=== PATIENT | female | born 1990 | race Native Hawaiian/Other Pacific Islander ===

== ENCOUNTER → 2020-10-07 | Outpatient (REF) | LOC: M LAB 10:07 | PROVIDERS: ATTEND Nurse Practitioner Family | DX: Z00.00 Encounter for general adult medical examination without abnormal findings (principal) ==

== ENCOUNTER → 2020-10-12 | Outpatient (REF) | LOC: M EMPSSV 09:21 | PROVIDERS: ATTEND Family Medicine | DX: Z11.52 Encounter for screening for COVID-19 (principal) ==

== ENCOUNTER → 2020-10-12 | Outpatient (CLI) | payer OTHER ==
[2020-10-12 09:16] LABS: EOS # 0.1 10^3/uL (0.0-0.5); EOS % 2.9 % (0.0-3.0); HEMOGLOBIN 13.6 g/dl (12.0-15.5); LYMPH # 1.6 10^3/uL (1.5-5.0); LYMPH % 41.3 % (24.0-44.0); MEAN CORPUSCULAR HEMOGLOBIN 32.1 pg (27.0-33.0); MEAN CORPUSCULAR VOLUME 94.3 fl (80.0-96.0); MONO # 0.3 10^3/uL (0.0-0.8); MONO % 8.1 % (2.0-8.0); NEUTROPHILS # 1.8 10^3/uL (1.5-8.5); NEUTROPHILS % 46.4 % (36.0-66.0); PLATELET COUNT, AUTOMATED 197 10^3/uL (150-450); RED BLOOD COUNT 4.24 10^6/uL (4.00-5.40); WHITE BLOOD COUNT 3.9 10^3/uL (4.0-10.0)
[2020-10-12 09:58] LABS: ALT/SGPT 54 U/L (12-78); BILIRUBIN,TOTAL 0.3 MG/DL (0.2-1.0); BLOOD UREA NITROGEN 25 MG/DL (7-18); CALCIUM LEVEL 8.8 MG/DL (8.5-10.1); CARBON DIOXIDE LEVEL 29 MEQ/L (21-32); CHLORIDE LEVEL 109 MEQ/L (98-107); CREATININE FOR GFR 0.76 MG/DL (0.55-1.30); FREE T4 0.81 NG/DL (0.76-1.46); GLOMERULAR FILTRATION RATE > 60.0 (>60); GLUCOSE, FASTING 84 MG/DL (70-100); MAGNESIUM LEVEL 2.1 MG/DL (1.8-2.4); POTASSIUM SERUM 4.2 MEQ/L (3.5-5.1); SODIUM LEVEL 142 MEQ/L (136-145); THYROID STIMULATING HORMONE 0.948 uIU/ML (0.358-3.740); TOTAL PROTEIN 6.5 GM/DL (6.4-8.2)
[2020-10-12 10:24] LABS: TOTAL 25(OH) VITAMIN D 49.5 NG/ML (30.0-100.0)
== END ==
LOC: M LAB 08:52
PROVIDERS: ATTEND Physician Assistant
DX: Z13.29 Encounter for screening for other suspected endocrine disorder (principal)

== ENCOUNTER → 2020-11-19 | Outpatient (CLI) | payer OTHER ==
--- NOTE | 2020-11-19 14:54 | REP ---
INDICATION: FOOT PAIN EVAL SOFT TISSUE MASSES. COMPARISON: None TECHNIQUE: 3T multiplanar MRI imaging of the right was obtained using various sequences. FINDINGS: Magnetic susceptibility artifact is seen in the distal aspect of the 1st metatarsal secondary to previous bunionectomy. The remainder of the cortical and marrow signal seen throughout the foot is within normal limits. All imaged flexor and extensor tendons are intact and of normal appearing low signal throughout. There is no evidence of a joint effusion. Within the soft tissues of the ball of the foot from the subdermal region to the plantar fascia there is an oval-shaped 2.2 by 1.2 by 1.9 cm sized mixed signal structure which is situated between the markers on the skin placed by the sand technologist. IMPRESSION: Small soft tissue mass lesion potentially representing induration due to inflammation/infection or an actual mass. A gadolinium-enhanced exam may shed further light on the abnormality. <Electronically signed by Denzel Kennedy > 11/19/20 [id number]
--- NOTE | 2020-11-19 15:04 | REP ---
INDICATION: FOOT PAIN EVAL SOFT TISSUE MASS. COMPARISON: None TECHNIQUE: 3T multiplanar MRI imaging of the left foot was obtained using various sequences. FINDINGS: Seen on the anterior surface of the midfoot and subjacent to the marker placed by the technologist there is a 2.2 x 1.1 by 1.5 cm sized mixed signal solid nodule. This abuts the extensor tendon to the 2nd digit but there is no definite evidence of tendinous involvement. There is no evidence of erosion of the cortex of the underlying osseous structures. There is no joint effusion. Cortical marrow signal seen throughout the imaged osseous structures is within normal limits with the exception of magnetic susceptibility artifact seen in the distal aspect of the 1st metatarsal secondary to some surgical procedure likely a bunionectomy. IMPRESSION: Small soft tissue nodular density as described above the etiology of which is uncertain. Consider a gadolinium-enhanced exam if clinically relevant. <Electronically signed by Denzel Kennedy > 11/19/20 [id number]
== END ==
LOC: M PLARAD 10:36
PROVIDERS: ATTEND Podiatrist Foot & Ankle Surgery
DX: D21.21 Benign neoplasm of connective and other soft tissue of right lower limb, including hip (principal); D21.22 Benign neoplasm of connective and other soft tissue of left lower limb, including hip

== ENCOUNTER → 2020-11-29 | Outpatient (CLI) | payer OTHER ==
[~2020-11-29] MED LIST: HYDR-3713 PO; ONDA-83 PO; VITMTA PO
== END ==
LOC: M LABSMTC 14:25
PROVIDERS: ATTEND Anesthesiology
DX: Z11.52 Encounter for screening for COVID-19 (principal)

== ENCOUNTER 2020-12-01 08:29 | Day surgery (SDC) | payer OTHER ==
[~2020-12-01] VITALS: Ht 165.1 cm; Wt 61.7 kg
[~2020-12-01 08:29] MED LIST changes: +CLINDAMYCIN 600 MG in IV 1 EA IV ONE; -HYDR-3713 PO; +LR 1,000 ML IV ONE; -ONDA-83 PO
[2020-12-01] MEDS ORDERED: dexameTHASONE 4 MG/ML 1ML VIAL (J1100 PER 1MG) As Ordered ONE (10:31)
[2020-12-01] MEDS ORDERED: LIDOCAINE 1% MDV 20ML VIAL As Ordered ONE (10:31)
[2020-12-01] MEDS ORDERED: BUPIVACAINE HCL 0.5% 10ML VIAL As Ordered ONE (10:31)
[2020-12-01] MEDS ORDERED: MIDAZOLAM INJ 2MG/2ML VIAL (J2250 PER 1MG) As Ordered ONE (10:52)
[2020-12-01] MEDS ORDERED: fentaNYL 100 MCG/2 ML INJECTION (J3010) As Ordered ONE (10:52)
[2020-12-01] MEDS ORDERED: LIDOCAINE 2% 100MG/5ML SDV (FOR ANES.) As Ordered ONE (10:52)
[2020-12-01] MEDS ORDERED: propofoL 200 MG/20 ML VIAL As Ordered ONE (10:52)
[2020-12-01] MEDS ORDERED: CLINDAMYCIN 600 MG/50 ML PREMIX BAG As Ordered ONE (11:18)
[2020-12-01] MEDS ORDERED: KETOROLAC 60MG 2ML VIAL As Ordered ONE (11:59)
[2020-12-01] MEDS ORDERED: ONDA-83 PO (12:26)
[2020-12-01] MEDS ORDERED: HYDR-3713 PO (12:26)
--- NOTE | 2020-12-01 13:08 | RO ---
OPERATIVE NOTE DATE OF OPERATION: 12/01/2020 PREOPERATIVE DIAGNOSIS: Left foot dorsal and posterior soft tissue mass. POSTOPERATIVE DIAGNOSIS: Left foot dorsal and posterior soft tissue mass. PROCEDURE: Left foot dorsal and posterior soft tissue mass excision. SURGEON: Amauri Landis DPM PROFILER: ANESTHESIA: Monitored anesthesia care, preop injection of 20 mL of 1:1 mixture of 1% Lidocaine plain and 0.5% Marcaine plain. ESTIMATED BLOOD LOSS: Minimal. MATERIALS: 4-0 Vicryl, 4-0 nylon. INJECTABLES: None. SPECIMEN: Left dorsal soft tissue mass and left posterior soft tissue mass. COMPLICATIONS: None. CONDITION: Stable. INDICATIONS: Francine Velásquez is a 30-year-old female who presents to [facility] with complaints of painful masses on the dorsal and posterior aspect of her left foot. She presents today for surgical correction. The patient site and side were identified and marked in preoperative area and consent was reviewed and obtained. Risks, complications and alternatives to the procedure were explained to the patient in detail, all questions were answered. DESCRIPTION OF PROCEDURE: The patient was brought to the operating room and placed on the operating room table in the prone position. Monitored anesthesia care was delivered by the anesthesia team. Preop injection of 20 mL of 1:1 mixture of 1% Lidocaine plain and 0.5% Marcaine plain injected into the left foot. The left foot was prepped and draped in usual sterile fashion. Tourniquet was applied to the left ankle and inflated to 250 mmHg. The posterior lesion was first addressed. This was noted to be in the back of the heel just distal to the Achilles tendon insertion. Transverse incision was made over top of the lesion and amorphous soft tissue mass was noted. This was carefully excised with tenotomy scissors in total and sent for pathology. The lesion was totally superficial to the Achilles tendon with no tendon involvement. Site was irrigated with normal saline. The incision was repaired with 4-0 nylon. Temporary dressing was applied. Tourniquet was deflated. The patient was then flipped from prone to supine on stretcher. The foot was then prepped and draped again in sterile fashion. The tourniquet was re-inflated again at 250 mmHg. Dorsal mass was noted to be at the midfoot in the area of a tattoo. A linear incision was made overlying the soft tissue mass. Similar mass was found again just deep to the dermis and superficial to the extensor tendons. This mass was excised with tenotomy scissors in total and sent for pathology. Site was irrigated with normal saline. Closure was performed with 4-0 Vicryl and 4-0 nylon. Sterile dressings were applied. Tourniquet was deflated. The patient was brought to PACU with vital signs stable and neurovascular status intact. She will be partial weightbearing and she will follow up in the office in two days.
[2020-12-01 13:30] VITALS: BP 120/73
== END 2020-12-01 13:35 | disposition home or self-care (01) ==
LOC: M SDC 08:29
PROVIDERS: ATTEND Podiatrist Foot & Ankle Surgery
DX: M06.372 Rheumatoid nodule, left ankle and foot (principal); Z87.891 Personal history of nicotine dependence; Z88.0 Allergy status to penicillin; Z91.018 Allergy to other foods
CPT/HCPCS: 11423; 12031; 88305; 88312; J1885; J2250; J3010

== ENCOUNTER → 2021-03-21 | Outpatient (REF) ==
[~2021-03-21] MED LIST changes: -CLINDAMYCIN 600 MG in IV 1 EA IV ONE; +HYDR-3713 PO; -LR 1,000 ML IV ONE; +ONDA-83 PO
== END ==
LOC: M EMP 14:57
PROVIDERS: ATTEND Family Medicine
DX: Z20.822 Contact with and (suspected) exposure to COVID-19 (principal)

== ENCOUNTER → 2021-08-08 | Outpatient (REF) | LOC: M LABSMTC 11:59 | PROVIDERS: ATTEND Pediatrics | DX: Z20.822 Contact with and (suspected) exposure to COVID-19 (principal) ==

== ENCOUNTER → 2022-01-09 | Outpatient (REF) | LOC: M LABSMTC 11:48 | PROVIDERS: ATTEND Family Medicine | DX: Z20.822 Contact with and (suspected) exposure to COVID-19 (principal) ==

== ENCOUNTER → 2022-09-07 | Outpatient (CLI) | payer OTHER ==
[2022-09-07 14:07] LABS: BASO # 0.1 10^3/uL (0.0-0.2); BASO % 0.7 % (0.0-1.0); EOS # 0.2 10^3/uL (0.0-0.5); EOS % 2.2 % (0.0-3.0); HEMATOCRIT 44.1 % (36.0-47.0); HEMOGLOBIN 13.8 g/dl (12.0-15.5); LYMPH # 1.7 10^3/uL (1.5-5.0); MEAN CORPUSCULAR HEMOGLOBIN 28.9 pg (27.0-33.0); MEAN CORPUSCULAR HGB CONC 31.3 g/dl (32.0-36.5); MEAN CORPUSCULAR VOLUME 92.5 fl (80.0-96.0); MONO # 0.7 10^3/uL (0.0-0.8); NEUTROPHILS # 4.1 10^3/uL (1.5-8.5); NEUTROPHILS % 61.8 % (36.0-66.0); PLATELET COUNT, AUTOMATED 242 10^3/uL (150-450); RED BLOOD COUNT 4.77 10^6/uL (4.00-5.40); WHITE BLOOD COUNT 6.7 10^3/uL (4.0-10.0)
[2022-09-07 14:27] LABS: ERYTHROCYTE SEDIMENTATION RATE 12 mm/hr (0-20)
[2022-09-07 14:39] LABS: URIC ACID 3.9 MG/DL (3.1-7.8)
[2022-09-07 14:42] LABS: ALBUMIN 4.5 G/DL (3.2-5.2); ALKALINE PHOSPHATASE 69 U/L (46-116); ALT/SGPT 39 U/L (7.0-40); AST/SGOT 44 U/L (<34); BILIRUBIN,TOTAL 0.4 MG/DL (0.3-1.2); BLOOD UREA NITROGEN 24 MG/DL (9-23); C REACTIVE PROTEIN QUANTITATIV < 0.40 MG/DL (<1.0); CALCIUM LEVEL 9.8 MG/DL (8.5-10.1); CARBON DIOXIDE LEVEL 31 MMOL/L (20-31); CHLORIDE LEVEL 103 MMOL/L (98-107); GLOMERULAR FILTRATION RATE > 60.0 (>60); GLUCOSE, FASTING 73 MG/DL (60-100); SODIUM LEVEL 142 MMOL/L (136-145); TOTAL PROTEIN 7.2 G/DL (5.7-8.2)
[2022-09-07 14:43] LABS: RHEUMATOID FACTOR QUANT 19.6 IU/ML (<14)
[2022-09-08 23:07] LABS: ANA (HEP2) Negative (.); CYCLIC CITRULLINATED PEPTIDE 1 units (0-19)
== END ==
LOC: M LAB 12:49
PROVIDERS: ATTEND Physician Assistant
DX: M79.672 Pain in left foot (principal)